=== PATIENT | male | born 1980 | race Two or more races ===

== ENCOUNTER 2021-10-24 19:42 | Emergency (ER) | payer SELFPAY ==
[~2021-10-24] VITALS: Ht 160 cm; Wt 94.1 kg
[2021-10-24] MEDS ORDERED: HYDROcodone-ACET 5/325MG TAB PO ONE (21:30)
[2021-10-24 22:31] LABS: Basophils # (auto) 0.1 10 ^3/uL (0-0.2); Basophils % (auto) 0.7 % (0.0-2.0); Eosinophils # (auto) 0.1 10 ^3/uL (0-0.8); Eosinophils % (auto) 0.9 % (0.0-7.0); Hematocrit 39.5 % (41.0-53.0); Hemoglobin 13.9 g/dL (13.5-17.5); Lymphocytes # (auto) 2.4 10 ^3/uL (0.4-5.4); Lymphocytes % (auto) 27.9 % (10.0-50.0); Mean Corpuscular Hemoglobin 30.2 pg (28.0-32.0); Mean Corpuscular Hgb Conc. 35.1 g/dL (32.0-36.0); Mean Corpuscular Volume 86.1 fL (80.0-100.0); Monocytes # (auto) 0.7 10 ^3/uL (0-1.3); Neutrophils # (auto) 5.3 10 ^3/uL (1.6-8.6); Neutrophils % (auto) 62.5 % (37.0-80.0); Red Blood Cells 4.58 10^6/uL (4.5-5.90); Red Cell Distribution Width 13.2 % (11.8-14.3); White Blood Cell 8.6 10^3/uL (4.4-10.8)
[2021-10-24 22:54] LABS: Potassium 4.1 mmol/L (3.5-5.1)
[2021-10-24 22:58] LABS: BUN/Creatinine Ratio 14.3; Bilirubin, Total 0.5 mg/dL (0.2-1.0)
[2021-10-24 23:09] VITALS: BP 137/84
== END 2021-10-24 23:39 | disposition home or self-care (01) ==
LOC: ER 20:04
DX: S00.31XA Abrasion of nose, initial encounter (principal); R07.89 Other chest pain; M25.532 Pain in left wrist; V43.52XA Car driver injured in collision with other type car in traffic accident, initial encounter; Y93.89 Activity, other specified; Y92.410 Unspecified street and highway as the place of occurrence of the external cause; Y99.8 Other external cause status
CPT/HCPCS: 36415; 70450; 71046; 72125; 72170; 73100; 80053; 83880; 84484; 85025; 93005